=== PATIENT | male | born 1970 | race Caucasian/White ===

== ENCOUNTER 2016-06-05 14:07 | Inpatient (IN) | payer BC ==
[2016-06-05 15:34] VITALS: BMI 27.1
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
[2016-06-05] MEDS ORDERED: MENTHOL/PHENOL 1 EACH UD MM PRN (17:54)
[2016-06-05] MEDS ORDERED: diphenhydrAMINE HCL 50 MG CAPSULE PO PRN (17:54)
[2016-06-05] MEDS ORDERED: MAG HYDROX/AL HYDROX/SIMETH 30 ML UNIT-DOSE CUP PO PRN (17:54)
[2016-06-05] MEDS ORDERED: LOPERAMIDE HCL 2 MG CAPSULE PO PRN (17:54)
[2016-06-05] MEDS ORDERED: MAGNESIUM HYDROX 2400MG/30ML ORAL SUSPENSION 30 ML CUP PO PRN (17:54)
[2016-06-05] MEDS ORDERED: NICOTINE POLACRILEX 4 MG GUM BC PRN (17:54)
[2016-06-05] MEDS ORDERED: P-EPHED 60MG/TRIPROLIDI 2.5MG TABLET PO PRN (17:54)
[2016-06-05] MEDS ORDERED: MAGNESIUM CITRATE 300 ML BOTTLE PO PRN (17:54)
[2016-06-05] MEDS ORDERED: ACETAMINOPHEN 325 MG TABLET (FP) PO PRN (17:54)
[2016-06-05] MEDS ORDERED: guaiFENesin/D-METHORPHAN HB 10 ML UNIT-DOSE CUPS PO PRN (17:54)
[2016-06-05] MEDS ORDERED: CYCLOBENZAPRINE HCL 10 MG TABLET (FP) PO PRN (17:55)
[2016-06-05] MEDS ORDERED: cloNIDine HCL 0.1 MG TABLET PO PRN (17:55)
[2016-06-05] MEDS ORDERED: ONDANSETRON *ODT* 4 MG TABLET SL PRN (17:56)
[2016-06-05] MEDS ORDERED: METHADONE HCL 10 MG TABLET (FOR DETOX USE ONLY) PO ONE ×2 (18:30→23:00)
[2016-06-05] MEDS: diazePAM 5 MG TABLET PO PRN ×2 (19:08→22:18)
[2016-06-05] MEDS: RANITIDINE HCL 150 MG TABLET (FP) PO SCH (22:16)
[2016-06-05] MEDS: levETIRAcetam 500 MG TABLET (FP) PO SCH (22:16)
[2016-06-05] MEDS: THIAMINE HCL 100 MG TABLET (FP) PO SCH (22:16)
[2016-06-05 23:21] LABS: URINE APPEARANCE CLOUDY; URINE BILIRUBIN NEGATIVE (NEGATIVE); URINE BLOOD NEGATIVE (NEGATIVE); URINE COLOR YELLOW; URINE GLUCOSE (UA) NEGATIVE (NEGATIVE); URINE KETONE NEGATIVE (NEGATIVE); URINE LEUK ESTERASE NEGATIVE (NEGATIVE); URINE NITRITE NEGATIVE (NEGATIVE); URINE PROTEIN NEGATIVE (NEGATIVE); URINE UROBILINOGEN NEGATIVE E.U./dl (0.2-1.0)
[2016-06-06 10:00] LABS: MCH 31.2 pg (25.7-33.7); MCHC 33.3 g/dl (32.0-35.9); MEAN CELL VOLUME 93.6 fl (80-96); MEAN PLT VOLUME 7.6 fl (7.5-11.1); PLATELET COUNT 292 K/MM3 (134-434); RDW 14.1 % (11.9-15.9); WHITE BLOOD COUNT 6.7 K/mm3 (4.0-10.0)
[2016-06-06] MEDS ORDERED: METHADONE HCL 10 MG TABLET (FOR DETOX USE ONLY) PO ONE (10:00)
--- NOTE | 2016-06-06 10:07 | PN ---
[facility] COWS - Scale Resting Pulse: 0= [place] 80 or Below Sweatin=Flushed/Facial Moisture Restless Observation: 1= Difficult to Sit Still Pupil Size: 0= Normal to Room Light Bone or Joint Aches: 2= Severe Diffuse Aches Runny Nose/ Eye Tearin= Runny Nose/Eyes GI Upset > 30mins: 2= Nausea/Diarrhea Tremor Observation of Outstretched Hands: 2= Slight Tremor Visible Yawning Observation: 1= 1-2x During Session Anxiety or Irritability: 2=Irritable/Anxious Goose Flesh Skin: 0=Smooth Skin COWS Score: 14 [facility] Progress Note (SOAP) Subjective: Anxiety,tremors,sweating,interrupted sleep,restless. Objective: 06/06/16 10:05 Vital Signs - 8 hr 06/06/16 06/06/16 06/06/16 03:44 06:38 09:36 Temperature 98.2 F 97.9 F Pulse Rate 64 77 Respiratory 18 16 20 Rate Blood Pressure 112/71 135/81 Laboratory Tests 06/05/16 19:49 Urine Color Yellow Urine Appearance Cloudy Urine pH 7.0 Ur Specific [place] 1.013 Urine Protein Negative Urine Glucose (UA) Negative Urine Ketones Negative Urine Blood Negative Urine Nitrite Negative Urine Bilirubin Negative Urine Urobilinogen Negative Ur Leukocyte Esterase Negative labs noted Assessment: 06/06/16 10:06 Withdrawal sx. Plan: Continue detox
[2016-06-06] MEDS: PRENATAL VITAMINS W/ FOLIC ACID TABLET (FP) PO SCH (10:13)
[2016-06-06] MEDS: levETIRAcetam 500 MG TABLET (FP) PO SCH ×2 (10:13→22:06)
[2016-06-06] MEDS: diazePAM 5 MG TABLET PO PRN ×2 (10:13→22:06)
[2016-06-06] MEDS: NICOTINE 21 MG/24 HOURS TOPICAL PATCH TD SCH (10:14)
[2016-06-06] MEDS: RANITIDINE HCL 150 MG TABLET (FP) PO SCH ×2 (10:14→22:06)
[2016-06-06 10:40] LABS: ALBUMIN 3.1 g/dl (3.4-5.0); ALK PHOS 70 U/L (45-117); ANION GAP 7 (8-16); BILIRUBIN,TOTAL 0.5 mg/dL (0.2-1.0); CALCIUM 8.3 mg/dL (8.5-10.1); CO2 27 mmol/L (21-32); CREATININE 0.8 mg/dL (0.7-1.3); GLUCOSE,RANDOM 82 mg/dL (74-106); SGOT/AST 35 U/L (15-37); SGPT/ALT 30 U/L (12-78); TOT PROT 6.3 g/dl (6.4-8.2)
--- NOTE | 2016-06-06 15:06 | EKG ---
Test Reason : Blood Pressure : / mmHG Vent. Rate : 062 BPM Atrial Rate : 062 BPM P-R Int : 110 ms QRS Dur : 088 ms QT Int : 454 ms P-R-T Axes : -10 059 034 degrees QTc Int : 460 ms SINUS RHYTHM WITH SHORT CT MODERATE VOLTAGE CRITERIA FOR LVH, MAY BE NORMAL VARIANT BORDERLINE ECG NO PREVIOUS ECGS AVAILABLE Confirmed by CITLALY FRAZIER MD ([id number]) on 06/06/2016 3:06:21 PM Referred By: Gordon Be Confirmed By:CITLALY FRAZIER MD
[2016-06-06] MEDS: THIAMINE HCL 100 MG TABLET (FP) PO SCH (22:06)
[2016-06-07] MEDS: diazePAM 5 MG TABLET PO PRN ×3 (05:38→22:03)
[2016-06-07] MEDS ORDERED: METHADONE HCL 5 MG TABLET (FOR DETOX USE ONLY) PO ONE (10:00)
--- NOTE | 2016-06-07 10:10 | PN ---
S COWS - Scale Resting Pulse: 0= [place] 80 or Below Sweatin=Flushed/Facial Moisture Restless Observation: 1= Difficult to Sit Still Pupil Size: 0= Normal to Room Light Bone or Joint Aches: 1= Mild Discomfort Runny Nose/ Eye Tearin= Nasal Congestion GI Upset > 30mins: 2= Nausea/Diarrhea Tremor Observation of Outstretched Hands: 2= Slight Tremor Visible Yawning Observation: 1= 1-2x During Session Anxiety or Irritability: 2=Irritable/Anxious Goose Flesh Skin: 0=Smooth Skin COWS Score: 12 S Progress Note (SOAP) Subjective: anxiety,sweating,interrupted sleep,nausea Objective: 06/07/16 10:07 Vital Signs - 8 hr 06/07/16 06/07/16 03:30 06:26 Temperature 96.8 F L Pulse Rate 76 Respiratory 18 18 Rate Blood Pressure 135/92 Laboratory Tests 06/05/16 06/06/16 06/06/16 19:49 07:20 07:20 WBC 6.7 RBC 3.91 L Hgb 12.2 Hct 36.6 MCV 93.6 MCHC 33.3 RDW 14.1 Plt Count 292 MPV 7.6 Sodium Potassium Chloride Carbon Dioxide Anion Gap BUN Creatinine Creat Clearance w eGFR Random Glucose Calcium Total Bilirubin AST ALT Alkaline Phosphatase Total Protein Albumin Urine Color Yellow Urine Appearance Cloudy Urine pH 7.0 Ur Specific [place] 1.013 Urine Protein Negative Urine Glucose (UA) Negative Urine Ketones Negative Urine Blood Negative Urine Nitrite Negative Urine Bilirubin Negative Urine Urobilinogen Negative Ur Leukocyte Esterase Negative RPR Titer Hepatitis C Antibody >11.0 H 06/06/16 06/06/16 07:20 07:20 WBC RBC Hgb Hct MCV MCHC RDW Plt Count MPV Sodium 142 Potassium 4.1 Chloride 108 H Carbon Dioxide 27 Anion Gap 7 L BUN 9 Creatinine 0.8 Creat Clearance w eGFR > 60 Random Glucose 82 Calcium 8.3 L Total Bilirubin 0.5 AST 35 ALT 30 Alkaline Phosphatase 70 Total Protein 6.3 L Albumin 3.1 L Urine Color Urine Appearance Urine pH Ur Specific [place] Urine Protein Urine Glucose (UA) Urine Ketones Urine Blood Urine Nitrite Urine Bilirubin Urine Urobilinogen Ur Leukocyte Esterase RPR Titer Nonreactive Hepatitis C Antibody labs noted, Hep C is +, RNA quantitation is pending Assessment: 02/24/17 10:09 Withdrawal sx Hep C + Plan: Continue detox
[2016-06-07] MEDS: PRENATAL VITAMINS W/ FOLIC ACID TABLET (FP) PO SCH (10:14)
[2016-06-07] MEDS: RANITIDINE HCL 150 MG TABLET (FP) PO SCH ×2 (10:14→22:03)
[2016-06-07] MEDS: levETIRAcetam 500 MG TABLET (FP) PO SCH ×2 (10:14→22:03)
[2016-06-07] MEDS: NICOTINE 21 MG/24 HOURS TOPICAL PATCH TD SCH (10:15)
[2016-06-07] MEDS: THIAMINE HCL 100 MG TABLET (FP) PO SCH (22:03)
[2016-06-08] MEDS: diazePAM 5 MG TABLET PO PRN ×2 (06:10→10:02)
[2016-06-08] MEDS ORDERED: METHADONE HCL 5 MG TABLET (FOR DETOX USE ONLY) PO ONE (10:00)
[2016-06-08] MEDS: RANITIDINE HCL 150 MG TABLET (FP) PO SCH (10:02)
[2016-06-08] MEDS: PRENATAL VITAMINS W/ FOLIC ACID TABLET (FP) PO SCH (10:02)
[2016-06-08] MEDS: levETIRAcetam 500 MG TABLET (FP) PO SCH (10:02)
[2016-06-08] MEDS: NICOTINE 21 MG/24 HOURS TOPICAL PATCH TD SCH (10:03)
--- NOTE | 2016-06-08 10:41 | PN ---
S Progress Note (SOAP) Subjective: Anxious, Interrupted sleep, Mild tremors, Reports feeling better Objective: 06/08/16 10:39 Laboratory Last Values WBC 6.7 K/mm3 (4.0-10.0) 06/06/16 07:20 RBC 3.91 M/mm3 (4.00-5.60) L 06/06/16 07:20 Hgb 12.2 GM/dL (11.7-16.9) 06/06/16 07:20 Hct 36.6 % (35.4-49) 06/06/16 07:20 MCV 93.6 fl (80-96) 06/06/16 07:20 MCHC 33.3 g/dl (32.0-35.9) 06/06/16 07:20 RDW 14.1 % (11.9-15.9) 06/06/16 07:20 Plt Count 292 K/MM3 (134-434) 06/06/16 07:20 MPV 7.6 fl (7.5-11.1) 06/06/16 07:20 Sodium 142 mmol/L (136-145) 06/06/16 07:20 Potassium 4.1 mmol/L (3.5-5.1) 06/06/16 07:20 Chloride 108 mmol/L (98-107) H 06/06/16 07:20 Carbon Dioxide 27 mmol/L (21-32) 06/06/16 07:20 Anion Gap 7 (8-16) L 06/06/16 07:20 BUN 9 mg/dL (7-18) 06/06/16 07:20 Creatinine 0.8 mg/dL (0.7-1.3) 06/06/16 07:20 Creat Clearance w eGFR > 60 (>60) 06/06/16 07:20 Random Glucose 82 mg/dL (74-106) 06/06/16 07:20 Calcium 8.3 mg/dL (8.5-10.1) L 06/06/16 07:20 Total Bilirubin 0.5 mg/dL (0.2-1.0) 06/06/16 07:20 AST 35 U/L (15-37) 06/06/16 07:20 ALT 30 U/L (12-78) 06/06/16 07:20 Alkaline Phosphatase 70 U/L (45-117) 06/06/16 07:20 Total Protein 6.3 g/dl (6.4-8.2) L 06/06/16 07:20 Albumin 3.1 g/dl (3.4-5.0) L 06/06/16 07:20 Urine Color Yellow 06/05/16 19:49 Urine Appearance Cloudy 06/05/16 19:49 Urine pH 7.0 (5.0-8.0) 06/05/16 19:49 Ur Specific [place] 1.013 (1.001-1.035) 06/05/16 19:49 Urine Protein Negative (NEGATIVE) 06/05/16 19:49 Urine Glucose (UA) Negative (NEGATIVE) 06/05/16 19:49 Urine Ketones Negative (NEGATIVE) 06/05/16 19:49 Urine Blood Negative (NEGATIVE) 06/05/16 19:49 Urine Nitrite Negative (NEGATIVE) 06/05/16 19:49 Urine Bilirubin Negative (NEGATIVE) 06/05/16 19:49 Urine Urobilinogen Negative E.U./dl (0.2-1.0) 06/05/16 19:49 Ur Leukocyte Esterase Negative (NEGATIVE) 06/05/16 19:49 RPR Titer Nonreactive (NONREACTIVE) 06/06/16 07:20 Hepatitis C Antibody >11.0 s/co ratio (0.0-0.9) H 06/06/16 07:20 lab noted Assessment: Withdrawal Symptoms Plan: Continue Detox
[2016-06-08 18:54] VITALS: BP 114/70; PULSE 78; TEMP 98.6
[2016-06-08] MEDS ORDERED: DOCUSATE SODIUM 100 MG CAPSULE (FP) PO SCH (22:00)
[2016-06-09] MEDS ORDERED: METHADONE HCL 10 MG TABLET (FOR DETOX USE ONLY) PO ONE (10:00)
[2016-06-09 16:00] LABS: HIV 1 & 2 AB NEGATIVE; HIV 1 AGp24 NEGATIVE
[2016-06-10] MEDS ORDERED: METHADONE HCL 5 MG TABLET (FOR DETOX USE ONLY) PO ONE (06:00)
[2016-06-11 00:06] LABS: HCV LOG 10 6.74 (.)
--- NOTE | 2016-06-22 17:25 | DS ---
[facility] Detox Discharge Summary Admission Date: 06/05/16 Discharge Date: 06/08/16 - History Present History: Opioid Dependence Pertinent Past History: HTN GERD Seizure - Physical Exam Results Vital Signs: Vital Signs Temperature 98.6 F 06/08/16 18:53 Pulse Rate 78 06/08/16 18:53 Respiratory Rate 18 06/08/16 18:53 Blood Pressure 114/70 06/08/16 18:53 O2 Sat by Pulse Oximetry (%) Pertinent Admission Physical Exam Findings: Withdrawal sx. Laboratory Last Values WBC 6.7 K/mm3 (4.0-10.0) 06/06/16 07:20 RBC 3.91 M/mm3 (4.00-5.60) L 06/06/16 07:20 Hgb 12.2 GM/dL (11.7-16.9) 06/06/16 07:20 Hct 36.6 % (35.4-49) 06/06/16 07:20 MCV 93.6 fl (80-96) 06/06/16 07:20 MCHC 33.3 g/dl (32.0-35.9) 06/06/16 07:20 RDW 14.1 % (11.9-15.9) 06/06/16 07:20 Plt Count 292 K/MM3 (134-434) 06/06/16 07:20 MPV 7.6 fl (7.5-11.1) 06/06/16 07:20 Sodium 142 mmol/L (136-145) 06/06/16 07:20 Potassium 4.1 mmol/L (3.5-5.1) 06/06/16 07:20 Chloride 108 mmol/L (98-107) H 06/06/16 07:20 Carbon Dioxide 27 mmol/L (21-32) 06/06/16 07:20 Anion Gap 7 (8-16) L 06/06/16 07:20 BUN 9 mg/dL (7-18) 06/06/16 07:20 Creatinine 0.8 mg/dL (0.7-1.3) 06/06/16 07:20 Creat Clearance w eGFR > 60 (>60) 06/06/16 07:20 Random Glucose 82 mg/dL (74-106) 06/06/16 07:20 Calcium 8.3 mg/dL (8.5-10.1) L 06/06/16 07:20 Total Bilirubin 0.5 mg/dL (0.2-1.0) 06/06/16 07:20 AST 35 U/L (15-37) 06/06/16 07:20 ALT 30 U/L (12-78) 06/06/16 07:20 Alkaline Phosphatase 70 U/L (45-117) 06/06/16 07:20 Total Protein 6.3 g/dl (6.4-8.2) L 06/06/16 07:20 Albumin 3.1 g/dl (3.4-5.0) L 06/06/16 07:20 Urine Color Yellow 06/05/16 19:49 Urine Appearance Cloudy 06/05/16 19:49 Urine pH 7.0 (5.0-8.0) 06/05/16 19:49 Ur Specific [place] 1.013 (1.001-1.035) 06/05/16 19:49 Urine Protein Negative (NEGATIVE) 06/05/16 19:49 Urine Glucose (UA) Negative (NEGATIVE) 06/05/16 19:49 Urine Ketones Negative (NEGATIVE) 06/05/16 19:49 Urine Blood Negative (NEGATIVE) 06/05/16 19:49 Urine Nitrite Negative (NEGATIVE) 06/05/16 19:49 Urine Bilirubin Negative (NEGATIVE) 06/05/16 19:49 Urine Urobilinogen Negative E.U./dl (0.2-1.0) 06/05/16 19:49 Ur Leukocyte Esterase Negative (NEGATIVE) 06/05/16 19:49 RPR Titer Nonreactive (NONREACTIVE) 06/06/16 07:20 Hepatitis C Antibody >11.0 s/co ratio (0.0-0.9) H 06/06/16 07:20 HCV Quantitation [id number] IU/mL (.) 06/07/16 09:13 HCV RNA log copies/mL 6.740 (.) 06/07/16 09:13 HIV 1&2 Antibody Screen Negative 06/06/16 07:20 HIV P24 Antigen Negative 06/06/16 07:20 labs noted,known hep c+ - Treatment Patient has Accepted a Rehab Referral to: [facility] - Medication Discharge Medications: Ambulatory Orders Levetiracetam [Keppra -] 1,000 mg PO BID 06/05/16 - Diagnosis (1) GERD (gastroesophageal reflux disease) Status: Acute Qualifiers: Esophagitis presence: without esophagitis Qualified Code(s): K21.9 - Gastro-esophageal reflux disease without esophagitis (2) Hypertension Status: Acute Qualifiers: Hypertension type: other secondary hypertension Qualified Code(s): I15.8 - Other secondary hypertension (3) Nicotine dependence Status: Acute Qualifiers: Nicotine product type: cigarettes Substance use status: in withdrawal Qualified Code(s): F17.213 - Nicotine dependence, cigarettes, with withdrawal (4) Opioid dependence with withdrawal Status: Acute (5) Seizure Status: Acute - AMA Did Patient Leave Against Medical Advice: Yes
== END 2016-06-08 18:34 | disposition left against medical advice (07) | DRG 770 ==
LOC: YASAS 14:07 → Y3N 18:05
PROVIDERS: ADMIT Internal Medicine; ATTEND Internal Medicine
PROC: HZ2ZZZZ Detoxification Services for Substance Abuse Treatment (ICD-10-PCS; principal; 2016-06-05)
DX: F11.23 Opioid dependence with withdrawal (principal); F17.210 Nicotine dependence, cigarettes, uncomplicated; I15.8 Other secondary hypertension; K21.9 Gastro-esophageal reflux disease without esophagitis; B18.2 Chronic viral hepatitis C; G40.909 Epilepsy, unspecified, not intractable, without status epilepticus; Z87.898 Personal history of other specified conditions
CPT/HCPCS: 36415; 80053; 81003; 85027; 86593; 87389; 87522; 93005; 93010